=== PATIENT | male | born 1955 | race Caucasian/White ===

== ENCOUNTER → 2020-04-02 | Outpatient (CLI) | payer BC ==
--- NOTE | 2020-04-02 15:30 | RAD ---
Bilateral lower extreme ABIs and left lower extremity arterial duplex ultrasound study without comparison for nonhealing wound of the left posterior distal calf. Technique and findings: Bilateral lower extremity ABIs and left lower extremity grayscale and color and spectral Doppler evaluation is performed. The AMISH on the right is 1.02 and on the left 1.02. There is suggestion of moderate multifocal atherosclerosis throughout the superficial femoral artery, with no definite evidence of hemodynamically significant stenosis within the left common femoral, profunda femoral, superficial femoral, popliteal, posterior tibial, anterior tibial, or peroneal arterial distribution. Dorsalis pedis artery is patent as well. IMPRESSION: 1. Moderate multifocal atherosclerosis with no sonographic evidence of hemodynamically significant stenosis in the left lower extremity. Electronically signed by: Darrius Gay MD (04/02/2020 3:28 PM) [id number]
--- NOTE | 2020-04-02 15:41 | RAD ---
Left lower extremity venous duplex ultrasound study for venous insufficiency, nonhealing wound to the left posterior distal calf. TECHNIQUE AND FINDINGS: Real-time grayscale and color and spectral Doppler evaluation of the superficial veins of left lower extremity is performed. The greater saphenous and lesser saphenous veins are patent and compressible with no evidence of superficial thrombophlebitis. The greater saphenous vein and saphenofemoral junction measures 1 cm in diameter, and demonstrates insufficiency in excess of 1.3 seconds. The proximal greater saphenous vein tapers to a diameter of 7 mm and there is insufficiency of 0.7 seconds. The greater saphenous vein Then continues to taper to a diameter of 4 mm just above the knee. Below the knee this vein continues to taper to a minimal diameter of 3.4 mm at the mid calf. The mid and distal greater saphenous vein did not demonstrate insufficiency. The lesser saphenous vein also does not demonstrate insufficiency, and measures 4.3 mm proximally. No perforators are identified. No large varicosities are seen. There is extensive subcutaneous edema however. IMPRESSION: 1. Left proximal greater saphenous venous insufficiency, with no demonstrable insufficiency of the mid or distal greater saphenous vein or lesser saphenous vein, and no perforators or discrete varicosities identified. Consider left lower extremity deep venous ultrasound study with specific instructions to interrogate for deep venous reflux which can accompany the presence of May Thurner stenosis. Electronically signed by: Darrius Gay MD (04/02/2020 3:38 PM) [id number]
== END | disposition home or self-care (01) ==
LOC: US 13:06
PROVIDERS: ATTEND Preventive Medicine Undersea and Hyperbaric Medicine
DX: L97.921 Non-pressure chronic ulcer of unspecified part of left lower leg limited to breakdown of skin (principal); I87.2 Venous insufficiency (chronic) (peripheral); I70.202 Unspecified atherosclerosis of native arteries of extremities, left leg
CPT/HCPCS: 93922; 93926; 93971

== ENCOUNTER 2020-05-16 06:54 | Outpatient (CLI) | payer BC ==
[2020-05-16] VITALS (12 sets, daily range): BP systolic 163–185; BP diastolic 74–96
[~2020-05-16] VITALS: Ht 180.3 cm; Wt 158.8 kg
[2020-05-16] MEDS ORDERED: MV-M1TAB7 PO (07:36)
[2020-05-16] MEDS ORDERED: ALLO300T PO (07:36)
[2020-05-16] MEDS ORDERED: POTA-163 PO (07:36)
[2020-05-16] MEDS ORDERED: MELO15TA23 PO (07:36)
[2020-05-16] MEDS ORDERED: ASPI-630 PO (07:36)
[2020-05-16] MEDS ORDERED: AMLO5TAB10 PO (07:36)
[2020-05-16] MEDS ORDERED: MULT-245 PO (07:36)
[2020-05-16] MEDS ORDERED: VITA400C37 PO (07:36)
[2020-05-16 07:47] LABS: BASO % 1 % (0-3); EOS # 0.1 x10^3/uL (0.0-0.7); EOS % 2 % (0-3); HEMATOCRIT 44.9 % (39.0-53.0); HEMOGLOBIN 15.2 g/dL (13.0-17.5); LYMPH # 1.3 x10^3/uL (1.0-4.8); LYMPH % 29 % (24-48); MEAN CORPUSCULAR HEMOGLOBIN 29 pg (25-35); MEAN CORPUSCULAR HGB CONC 34 g/dL (31-37); MEAN CORPUSCULAR VOLUME 87 fL (79-100); MONO # 0.5 x10^3/uL (0.0-1.1); MONO % 11 % (0-9); NEUT # 2.6 x10^3/uL (1.8-7.7); NEUT % 58 % (31-73); PLATELET COUNT 196 x10^3/uL (140-400); RED BLOOD COUNT 5.18 x10^6/uL (4.30-5.70); RED CELL DISTRIBUTION WIDTH 14.8 % (11.5-14.5); WHITE BLOOD COUNT 4.6 x10^3/uL (4.0-11.0)
[2020-05-16] MEDS ORDERED: HEPARIN for ARTERIAL LINE 1,500 ML ONE (07:54)
[2020-05-16] MEDS ORDERED: IODIXANOL 320 MG/ML 100 ML VIAL. ONE (07:54)
[2020-05-16] MEDS ORDERED: LIDOCAINE WITH 8.4% SOD BICARB 3 ML DISP.SYRIN. ONE (07:55)
[2020-05-16 08:04] LABS: CALCIUM 8.9 mg/dL (8.5-10.1); CREATININE 1.1 mg/dL (0.7-1.3); POTASSIUM 3.9 mmol/L (3.5-5.1)
[2020-05-16] MEDS ORDERED: HEPARIN for IV BOLUS 10,000 UNIT/10 ML VIAL. ONE (08:06)
[2020-05-16] MEDS ORDERED: LIDOCAINE WITH 8.4% SOD BICARB 3 ML DISP.SYRIN. IJ ONE (08:15)
[2020-05-16] MEDS ORDERED: IODIXANOL 320 MG/ML 100 ML VIAL. IART ONE (08:15)
[2020-05-16] MEDS ORDERED: fentaNYL PF VIAL 250 MCG/5 ML VIAL IV ONE (08:15)
[2020-05-16] MEDS ORDERED: MIDAZOLAM HCL/PF 5 MG/5 ML VIAL. IV ONE (08:15)
[2020-05-16 08:17] LABS: PROTHROMBIN TIME PATIENT 12.7 SEC (11.7-14.0)
--- NOTE | 2020-05-16 11:25 | NUR ---
pt HOB raised to 45 degrees after completing ordered recovery time. Groin site remains dry and intact. TITI YORK
--- NOTE | 2020-05-16 12:35 | NUR ---
Discharge Note: HARRIS CEBALLOS Discharge instructions and discharge home medications reviewed with Patient and a copy given. All questions have been answered and understanding verbalized. Groin site remains dry and intact The following instructions and handouts were given: sedation, groin site care, venous stasis Discontinued lines and drains: Peripheral IV intact. Patient discharged to Home or Self Care with Spouse via Wheelchair TITI RN Addendum: 05/16/20 at 1243 by JOSE ELIAS HOWARD RN Amended: Links added.
--- NOTE | 2020-05-16 13:21 | RAD ---
05/16/2020 11:15 AM Procedure: 1. Abdominal aortogram 2. Pelvic angiogram 3. Left lower extremity angiography Clinical Indication: Poorly healing wound, left calf. Left leg pain. Discussion: The procedure was explained in its entirety to the patient or the patients designated liability claims representative by a member of the treatment team, including a discussion of the risks, benefits and commonly accepted alternatives to the procedure, as well as the expected consequences of no therapy whatsoever. Discussion of the risks included, but was not limited to, those that are most frequent and those that are rare but possibly severe or life-threatening, as well as the possibility of unforeseen complications. All elements of maximal sterile barrier technique including the use of a cap, mask, sterile gown, sterile gloves, large sterile sheet, appropriate hand hygiene, and 2% chlorhexidine for cutaneous antisepsis (or acceptable alternative antiseptic per current guidelines) were followed for this procedure. The right common femoral artery was evaluated by ultrasound found to be patent. The artery was accessed using direct ultrasound guidance and micropuncture technique. Reference ultrasound images were saved medical record. Abdominal aortogram was performed demonstrating no flow-limiting stenosis or other gross abnormal normality. Pelvic angiography demonstrates no flow limiting stenosis or other abnormality. Aortic bifurcation was crossed. The superficial femoral artery was selected. Left lower extremity angiography was performed. The SFA, popliteal artery, and all 3 runoff vessels are patent to the foot. A preemie noted in the posterior distal leg system patients with. No evidence of flow-limiting atherosclerotic vascular disease is identified. Angiography of the access site demonstrates a distal common femoral puncture amenable to closure device use. A minx device was deployed. Hemostasis was achieved. No immediate complications were identified. Total fluoroscopy time: 6.6 min Dose area product: 445 Gycm2 The procedures performed under conscious sedation including continuous cardiopulmonary monitoring via dedicated sedation nurse. [id number] sedation time: 44 minutes Impression: No hemodynamically significant aortoiliac, or left lower extremity atherosclerotic vascular disease
== END 2020-05-16 12:40 | disposition home or self-care (01) ==
LOC: INTRAD 06:54
PROVIDERS: ATTEND Preventive Medicine Undersea and Hyperbaric Medicine
DX: S81.802D Unspecified open wound, left lower leg, subsequent encounter (principal); M79.662 Pain in left lower leg; I10 Essential (primary) hypertension; E78.5 Hyperlipidemia, unspecified; X58.XXXD Exposure to other specified factors, subsequent encounter; Z79.82 Long term (current) use of aspirin; Z79.899 Other long term (current) drug therapy; Z88.8 Allergy status to other drugs, medicaments and biological substances; Z98.890 Other specified postprocedural states
CPT/HCPCS: 36247; 36415; 75625; 75710; 76937; 80048; 85025; 85610; 99152; 99153; C1713; C1760; C1769; C1892; C1894; G0269; J1644; J2250; J3010; J3490; Q9967

== ENCOUNTER → 2020-06-19 | Outpatient (CLI) | payer BC ==
[2020-05-16 12:20] VITALS: BP 181/91
[~2020-06-19] MED LIST: ALLO300T PO; AMLO-186 PO; ASPI-630 PO; MELO15TA23 PO; MULT-245 PO; MV-M1TAB7 PO; POTA-163 PO; VITA400C37 PO
--- NOTE | 2020-06-19 15:21 | RAD ---
Left lower extremity venous doppler ultrasound History: Nonhealing wound in the left lower leg Comparison: None Findings: Multiple grayscale, color, and duplex spectral analysis sonographic images were acquired of the left lower extremity veins to evaluate for the presence of DVT. Exam is limited due to patient's body habitus. There is normal phasicity. Normal compression, color-flow, and augmentation is demonstrated from the left common femoral to the popliteal veins. There is normal color flow of the proximal greater saphenous and profunda femoris veins. There is normal color flow of segments of the calf veins. There was 1 second of reflex in the left common femoral vein, no other reflex identified. Impression: 1. There is no evidence of deep venous thrombosis from the left common femoral to the popliteal veins. 2. There was 1 second of reflex in the left common femoral vein, no other reflux identified. Electronically signed by: Yosvany Cruz MD (06/19/2020 3:17 PM) [id number]
== END ==
LOC: US 13:41
PROVIDERS: ATTEND Internal Medicine Cardiovascular Disease
DX: S81.802A Unspecified open wound, left lower leg, initial encounter (principal); X58.XXXA Exposure to other specified factors, initial encounter; Y93.89 Activity, other specified; Y92.89 Other specified places as the place of occurrence of the external cause; Y99.8 Other external cause status
CPT/HCPCS: 93971

== ENCOUNTER 2021-05-02 11:01 | Inpatient (IN) | payer BC ==
[~2021-05-02] VITALS: Ht 177.8 cm; Wt 186.8 kg
[2021-05-02] MEDS ORDERED: fentaNYL PF VIAL 100 MCG/2 ML VIAL IV PRN (11:30)
[2021-05-02] MEDS ORDERED: ACETAMINOPHEN 500 MG TABLET PO ONE (11:30)
[2021-05-02] MEDS ORDERED: PIPERACILLIN/TAZOBACTAM 4.5 GM in IV NORMAL SALINE 100ML 100 ML IV ONE (11:30)
[2021-05-02] MEDS ORDERED: VANCOMYCIN PER PHARMACY MC ONE (11:30)
[2021-05-02] MEDS ORDERED: VANCOMYCIN 2 GM in IV NORMAL SALINE 500ML BAG 500 ML IV ONE (12:00)
[2021-05-02] MEDS: IV NORMAL SALINE 1000ML BAG 1,000 ML IV SCH ×3 (12:26→16:30)
[2021-05-02 12:39] LABS: BASO # 0.1 x10^3/uL (0.0-0.2); BASO % 0 % (0-3); EOS % 0 % (0-3); HEMATOCRIT 40.8 % (39.0-53.0); HEMOGLOBIN 13.7 g/dL (13.0-17.5); LYMPH % 4 % (24-48); MEAN CORPUSCULAR HEMOGLOBIN 29 pg (25-35); MEAN CORPUSCULAR HGB CONC 34 g/dL (31-37); MEAN CORPUSCULAR VOLUME 85 fL (79-100); MONO # 1.2 x10^3/uL (0.0-1.1); MONO % 5 % (0-9); NEUT # 21.9 x10^3/uL (1.8-7.7); NEUT % 91 % (31-73); PLATELET COUNT 234 x10^3/uL (140-400); RED BLOOD COUNT 4.78 x10^6/uL (4.30-5.70); RED CELL DISTRIBUTION WIDTH 15.5 % (11.5-14.5); WHITE BLOOD COUNT 24.1 x10^3/uL (4.0-11.0)
--- NOTE | 2021-05-02 13:15 | PHYS DOC ---
Past Medical History Additional Past Medical Histor: OBESITY, KIDNEY STONES, GOUT, CELLULITIS Past Surgical History: No Surgical History Smoking Status: Never Smoker Alcohol Use: None General Adult EDM: Chief Complaint: WOUND CHECK HPI: HPI: Patient is a 66 year old male with history of gout, venous insufficiency to the left lower extremity, who presents to the ED today to be evaluated after falling. Patient states his left leg gave out and he fell landing on his buttocks. Patient denies any pain. Denies hitting his head on the ground. Denies any loss of consciousness. Denies being on any anticoagulants. He states he has a chronic wound to the left lower extremity for the last 5 years. He states today he noted the wound had turned red. He states he follows up with wound clinic and they did a biopsy of the wound on Tuesday this week. Denies any fever. Nausea or vomiting. Review of Systems: Review of Systems: Constitutional: Denies fever or chills. [] Eyes: Denies change in visual acuity. [] HENT: Denies nasal congestion or sore throat. [] Respiratory: Denies cough or shortness of breath. [] Cardiovascular: Denies chest pain or edema. [] GI: Denies abdominal pain, nausea, vomiting, bloody stools or diarrhea. [] : Denies dysuria. [] Musculoskeletal: Denies back pain or joint pain. [] Integument: Reports chronic wound to the left lower extremity Neurologic: Denies headache, focal weakness or sensory changes. [] Psychiatric: Denies depression or anxiety. [] Heart Score: C/O Chest Pain: N/A Risk Factors: Risk Factors: DM, Current or recent (<one month) smoker, HTN, HLP, family history of CAD, obesity. Risk Scores: Score 0 - 3: 2.5% MACE over next 6 weeks - Discharge Home Score 4 - 6: 20.3% MACE over next 6 weeks - Admit for Clinical Observation Score 7 - 10: 72.7% MACE over next 6 weeks - Early Invasive Strategies Current Medications: Current Medications Medications (Trade) Dose Ordered Sig/Cale Start Time Stop Time Status Last Admin Dose Admin Acetaminophen (Tylenol) 1,000 mg 1X ONCE 05/02/21 11:30 05/02/21 11:31 DC Fentanyl Citrate (Fentanyl 2ml Vial) 50 mcg PRN Q15MIN PRN 05/02/21 11:30 9/5/21 11:29 Piperacillin Sod/ Tazobactam Sod 4.5 gm/Sodium Chloride 100 ml @ 200 mls/hr 1X ONCE 05/02/21 11:30 05/02/21 11:59 DC Sodium Chloride 1,000 ml @ 2,190 mls/hr Q28M 05/02/21 11:30 05/02/21 12:30 DC Vancomycin HCl (Vanco Per Pharmacy) 1 each 1X ONCE 05/02/21 11:30 05/02/21 11:31 DC Vancomycin HCl 2 gm/Sodium Chloride 500 ml @ 250 mls/hr 1X ONCE 05/02/21 12:00 05/02/21 13:59 Allergies: Allergies: Allergies Coded Allergies Type Severity Reaction Last Updated Verified morphine Allergy Intermediate unknown 05/02/21 Yes Physical Exam: PE: Constitutional: Morbidly obese patient, no acute distress, non-toxic appearance. [] HENT: Normocephalic, atraumatic, bilateral external ears normal, oropharynx moist, no oral exudates, nose normal. [] Eyes: PERRLA, EOMI, conjunctiva normal, no discharge. [] Neck: Normal range of motion, no tenderness, supple, no stridor. [] Cardiovascular:Heart rate regular rhythm, no murmur [] Lungs & Thorax: Bilateral breath sounds clear to auscultation [] Abdomen: Bowel sounds normal, soft, no tenderness, no masses, no pulsatile masses. [] Skin: Left lower extremity with multiple wounds. Left mid russ with an open wound at 4X4 cm, left lateral russ with another open wound of 9 x 10 cm, left medial russ with another wound 15 x 12 cm. There is moderate amount of cellulitis from the foot all the way to the groin with most of it around the russ. Patient had a feminine pad as dressing to the wound, the pad is soaked with the drainage. +2 left pedal pulse. Full range of motion to the left foot. Cap refill less than 2 seconds in left toes. Back: No tenderness, no CVA tenderness. [] Extremities: No tenderness, no cyanosis, no clubbing, ROM intact, no edema. [] Neurologic: Alert and oriented X 3, normal motor function, normal sensory function, no focal deficits noted. [] Psychologic: Affect normal, judgement normal, mood normal. [] Current Patient Data: Labs: Laboratory Tests Test 05/02/21 12:15 White Blood Count 24.1 x10^3/uL (4.0-11.0) H Red Blood Count 4.78 x10^6/uL (4.30-5.70) Hemoglobin 13.7 g/dL (13.0-17.5) Hematocrit 40.8 % (39.0-53.0) Mean Corpuscular Volume 85 fL (79-100) Mean Corpuscular Hemoglobin 29 pg (25-35) Mean Corpuscular Hemoglobin Concent 34 g/dL (31-37) Red Cell Distribution Width 15.5 % (11.5-14.5) H Platelet Count 234 x10^3/uL (140-400) Neutrophils (%) (Auto) 91 % (31-73) H Lymphocytes (%) (Auto) 4 % (24-48) L Monocytes (%) (Auto) 5 % (0-9) Eosinophils (%) (Auto) 0 % (0-3) Basophils (%) (Auto) 0 % (0-3) Neutrophils # (Auto) 21.9 x10^3/uL (1.8-7.7) H Lymphocytes # (Auto) 1.0 x10^3/uL (1.0-4.8) Monocytes # (Auto) 1.2 x10^3/uL (0.0-1.1) H Eosinophils # (Auto) 0.0 x10^3/uL (0.0-0.7) Basophils # (Auto) 0.1 x10^3/uL (0.0-0.2) Platelet Estimate Pending Laboratory Tests 05/02/21 12:15 Vital Signs: Vital Signs Date Time Temp Pulse Resp B/P (MAP) Pulse Ox O2 Delivery O2 Flow Rate FiO2 05/02/21 11:01 100.0 106 18 170/79 (121) 97 100.0 EKG: EKG: [] Radiology/Procedures: Radiology/Procedures: [] Course & Med Decision Making: Course & Med Decision Making Pertinent Labs and Imaging studies reviewed. (See chart for details) Is a 66-year-old male patient presented to the ED today to be evaluated after falling at home. He has a chronic wounds to the left lower extremity with significant cellulitis. Vitals on arrival to the ED temperature 100.0, heart rate 106, respiration 18 on room air, O2 sats 97%, blood pressure 170/79. CBC with a WBC of 24.1 and significant bandemia. CMP with creatinine of 1.4, BUN is normal. Lactic 2.2. Procalcitonin 3.90. CRP 276.4. Patient was started on sepsis protocol including IV fluids and antibiotics. Spoke with Dr. Bearden who accepted patient for admission Venous Doppler and arterial Dopplers of the left lower extremity pending Dragon Disclaimer: Dragon Disclaimer: This electronic medical record was generated, in whole or in part, using a voice recognition dictation system. Date and Time of Reassessment Date: May 02, 2021 Time: 11:50 Fluid Challenge Is the fluid challenge complet: Yes IBW Target Volume Used: Yes BMI > 30: Yes Vital Signs Vital Signs: Vital Signs Date Time Temp Pulse Resp B/P (MAP) Pulse Ox O2 Delivery O2 Flow Rate FiO2 05/02/21 11:01 100.0 106 18 170/79 (121) 97 100.0 Temperature Source: Oral Respirations Respiratory Effort: Normal Respiratory Pattern: Normal Cardiovascular Pulse Rhythm: Regular Heart: Nml rate, reg. rhythm Lung Sounds Breath Sounds: Clear Capillary Refil Capillary Refill: Rt Hand > 3 seconds Peripheral Pulse Pulse Location: Monitor Pulse Strength: Normal (2+) Pulse Assessment Method: Monitor Integumentary Skin: Warm Skin Moisture: Dry Skin Turgor: Normal Skin Color: warm Fingernail Color: WNL Departure Departure Impression: Primary Impression: Fall from standing Qualified Codes: W19.XXXA - Unspecified fall, initial encounter Additional Impressions: Left leg cellulitis Leg wound, left Qualified Codes: S81.802A - Unspecified open wound, left lower leg, initial encounter Sepsis Qualified Codes: A41.9 - Sepsis, unspecified organism Fever Qualified Codes: R50.9 - Fever, unspecified Disposition: 09 ADMITTED INPATIENT Condition: STABLE Referrals: FLO WARREN DO (PCP) STEPHANIE STONE APRN May 02, 2021 13:15
[2021-05-02 13:24] LABS: CALCIUM 9.3 mg/dL (8.5-10.1); CREATININE 1.4 mg/dL (0.7-1.3); GFR 50.5; POTASSIUM 3.9 mmol/L (3.5-5.1)
[2021-05-02 13:28] LABS: ALBUMIN 2.8 g/dL (3.4-5.0); ALBUMIN/GLOBULIN RATIO 0.6 (1.0-1.7); TOTAL BILIRUBIN 0.6 mg/dL (0.2-1.0); TOTAL PROTEIN 7.8 g/dL (6.4-8.2)
[2021-05-02 13:46] LABS: C-REACTIVE PROTEIN 276.4 mg/L (0-3.3)
[2021-05-02 14:33] LABS: % BANDS 21 % (0-9); % MONOS 6 % (0-10)
[2021-05-02 14:35] LABS: % LYMPHS 1 % (24-48); % SEGS 72 % (35-66); PLT ESTIMATE ADEQUATE (ADEQUATE)
--- NOTE | 2021-05-02 14:57 | RAD ---
Exam Date: 05/02/2021 12:27 PM US LEFT LOWER EXTREMITY ARTERIAL DUPLEX EVAL Indication: Reason: LLE wounds/SONO TECH NOTIFIED / Spl. Instructions: / History: . LEFT EXTREMITY ARTERIAL COLOR DOPPLER ULTRASOUND HISTORY: Peripheral vascular disease TECHNIQUE: Grayscale, color Doppler, and spectral Doppler imaging of the lower extremity arterial sy stem was performed. FINDINGS: LEFT: The common femoral artery showed a monophasic arterial waveform and peak systolic velocity of 167 cm/ sec. The superficial femoral artery showed a monophasic arterial waveform and peak systolic velocity of 22 2 cm/sec. The popliteal artery showed a monophasic arterial waveform and peak systolic velocity of 103 cm/sec. The posterior tibial artery showed a monophasic arterial waveform and peak systolic velocity of 167 c m/sec. The peroneal artery showed a monophasic arterial waveform and peak systolic velocity of 57 cm/sec. The dorsalis pedis artery showed a biphasic arterial waveform and peak systolic velocity of 18 cm/sec . No focal area of accelerated flow is identified to suggest any hemodynamically significant stenosis. IMPRESSION: Monophasic waveforms throughout the left lower extremity arterial structures is consistent with chron ic atherosclerotic disease and small vessel disease. No focal areas of hemodynamically significant stenosis identified. Electronically signed by: Von Flowers MD (05/02/2021 2:54 PM) [facility]
[2021-05-02 17:40] VITALS: BP 160/80
[2021-05-02] MEDS ORDERED: AMLO1CAP5 PO (19:13)
[2021-05-02] MEDS ORDERED: POTA-121 PO (19:13)
[2021-05-02 19:33] VITALS: BP 119/49
[2021-05-02] MEDS: fentaNYL PF VIAL 100 MCG/2 ML VIAL IVP PRN (19:35)
[2021-05-02] MEDS ORDERED: PIP/TAZO PER PHARMACY MC PRN (20:00)
[2021-05-02] MEDS: PIPERACILLIN/TAZOBACTAM 4.5 GM in IV NORMAL SALINE 100ML 100 ML IV SCH (20:00)
--- NOTE | 2021-05-02 20:11 | PDOC1 ---
History and Physical Date of Admission Date of Admission DATE: 05/02/21 TIME: 20:05 Identification/Chief Complaint Chief Complaint leg wound and redness Source Source: Chart review, Patient History of Present Illness History of Present Illness Mr. Ba, is a 66 year old male admit with worsening of chronic left lower leg wound with now redness and drainage and cellulitis. He has a history of gout, venous insufficiency (never operated on) and has fallen today. Left leg was weak and he fell, and leg is more red and painful than normal. . Patient denies any pain. Denies hitting his head on the ground. Denies any loss of consciousness. He states he has a chronic wound to the left lower extremity for the last 5 years. He states he follows up with wound clinic and they did a biopsy of the wound last week Social History Smoke: No ALCOHOL: none Drugs: None Current Problem List Problem List Problems Medical Problems: (1) Fall from standing Status: Acute (2) Fever Status: Acute (3) Left leg cellulitis Status: Acute (4) Leg wound, left Status: Acute (5) Sepsis Status: Acute Current Medications Current Medications Current Medications Sodium Chloride 1,000 ml @ 2,190 mls/hr Q28M IV Last administered on 05/02/21at 16:30; Start 05/02/21 at 11:30; Stop 05/02/21 at 12:30; Status DC Piperacillin Sod/ Tazobactam Sod 4.5 gm/Sodium Chloride 100 ml @ 200 mls/hr 1X ONCE IV Last administered on 05/02/21at 13:26; Start 05/02/21 at 11:30; Stop 05/02/21 at 11:59; Status DC Vancomycin HCl (Vanco Per Pharmacy) 1 each 1X ONCE MC ; Start 05/02/21 at 11:30; Stop 05/02/21 at 11:31; Status DC Fentanyl Citrate (Fentanyl 2ml Vial) 50 mcg PRN Q15MIN PRN IV PAIN GREATER THAN 3/10; Start 05/02/21 at 11:30; Stop 05/02/21 at 19:01; Status DC Acetaminophen (Tylenol) 1,000 mg 1X ONCE PO Last administered on 05/02/21at 13:28; Start 05/02/21 at 11:30; Stop 05/02/21 at 11:31; Status DC Vancomycin HCl 2 gm/Sodium Chloride 500 ml @ 250 mls/hr 1X ONCE IV Last administered on 05/02/21at 14:05; Start 05/02/21 at 12:00; Stop 05/02/21 at 13:59; Status DC Fentanyl Citrate (Fentanyl 2ml Vial) 50 mcg PRN Q2HR PRN IVP PAIN Last a dministered on 05/02/21at 19:35; Start 05/02/21 at 19:00 Vancomycin HCl (Vanco Per Pharmacy) 1 each PRN DAILY PRN MC SEE COMMENTS; Start 05/02/21 at 20:00 Piperacillin Sod/ Tazobactam Sod (Zosyn Per Pharmacy) 1 each PRN DAILY PRN MC SEE COMMENTS; Start 05/02/21 at 20:00 Piperacillin Sod/ Tazobactam Sod 4.5 gm/Sodium Chloride 100 ml @ 200 mls/hr Q6HRS IV ; Start 05/02/21 at 20:00 Vancomycin HCl 1.5 gm/Sodium Chloride 500 ml @ 250 mls/hr Q12H IV ; Start 05/03/21 at 02:00 Active Scripts Active Reported Multi Vitamin Daily (Multivitamin) 1 Each Tablet 1 Each PO DAILY Aspirin 81 Mg Tab.chew 1 Tab PO DAILY Meloxicam 15 Mg Tablet 15 Mg PO DAILY Amlodipine Besylate 5 Mg Tablet 5 Mg PO DAILY Allopurinol 300 Mg Tablet 300 Mg PO DAILY Allergies Allergies: Coded Allergies: morphine (Verified Allergy, Intermediate, unknown, 05/02/21) ROS General: YES: Fatigue; No: Chills, Night Sweats, Malaise, Appetite, Other PSYCHOLOGICAL ROS: No: Anxiety, Behavioral Disorder, Concentration difficultie, Decreased libido, Depression, Disorientation, Hallucinations, Hostility, Irritablity, Memory difficulties, Mood Swings, Obsessive thoughts, Physical abuse, Sexual abuse, Sleep disturbances, Suicidal ideation, Other Eyes: No Blurry vision, No Decreased vision, No Double vision, No Dry eyes, No Excessive tearing, No Eye Pain, No Itchy Eyes, No Loss of vision, No Photophob ia, No Scotomata, No Uses contacts, No Uses glasses, No Other HEENT: No: Heacaches, Visual Changes, Hearing change, Nasal congestion, Nasal discharge, Oral lesions, Sinus pain, Sore Throat, Epistaxis, Sneezing, Snoring, Tinnitus, Vertigo, Vocal changes, Other Respiratory: No: Cough, Hemoptysis, Orthopnea, Pleuritic Pain, Shortness of breath, SOB with excertion, Sputum Changes, Stridor, Tachypnea, Wheezing, Other Cardiovascular: No Chest Pain, No Palpitations, No Orthopnea, No Paroxysmal Noc. Dyspnea, No Edema, No Lt Headedness, No Other Genitourinary: No Dysuria, No Frequency, No Incontinence, No Hematuria, No Retention, No Discharge, No Urgency, No Pain, No Flank Pain, No Other, No , No , No , No , No , No , No Musculoskeletal: No Gait Disturbance, No Joint Pain, No Joint Stiffness, No Joint Swelling, No Muscle Pain, No Muscular Weakness, No Pain In:, No Swelling In:, No Other Neurological: No Behavorial Changes, No Bowel/Bladder ControlChng, No Confusion, No Dizziness, No Gait Disturbance, No Headaches, No Impaired Coord/balance, No Memory Loss, No Numbness/Tingling, No Seizures, No Speech Problems, No Tremors, No Visual Changes, No Weakness, No Other Skin: Yes Rash, Yes Skin Lesion Changes Physical Exam General: Alert, Oriented X3, Cooperative, No acute distress HEENT: Atraumatic, PERRLA, EOMI Lungs: Clear to auscultation, Normal air movement Heart: S1S2, no gallops Abdomen: Soft (very obese, ) Rectal Exam: not examined Extremities: No cyanosis, Other (1+ LE edema, some lymphedema from size) Skin: Other (redness, and rash and breakdown, large medial lower leg with full thickness skin peeled off over about 12 cm, with drainage, ) Neuro: Normal speech, Normal tone, Sensation intact Psych/Mental Status: Mental status NL, Mood NL Vitals Vitals Vital Signs Date Time Temp Pulse Resp B/P (MAP) Pulse Ox O2 Delivery O2 Flow Rate FiO2 05/02/21 19:35 18 95 Room Air 05/02/21 19:33 98.0 101 119/49 (72) 98.0 Labs Labs Laboratory Tests Test 05/02/21 12:15 05/02/21 12:45 05/02/21 16:15 White Blood Count 24.1 x10^3/uL (4.0-11.0) Red Blood Count 4.78 x10^6/uL (4.30-5.70) Hemoglobin 13.7 g/dL (13.0-17.5) Hematocrit 40.8 % (39.0-53.0) Mean Corpuscular Volume 85 fL (79-100) Mean Corpuscular Hemoglobin 29 pg (25-35) Mean Corpuscular Hemoglobin Concent 34 g/dL (31-37) Red Cell Distribution Width 15.5 % (11.5-14.5) Platelet Count 234 x10^3/uL (140-400) Neutrophils (%) (Auto) 91 % (31-73) Lymphocytes (%) (Auto) 4 % (24-48) Monocytes (%) (Auto) 5 % (0-9) Eosinophils (%) (Auto) 0 % (0-3) Basophils (%) (Auto) 0 % (0-3) Neutrophils # (Auto) 21.9 x10^3/uL (1.8-7.7) Lymphocytes # (Auto) 1.0 x10^3/uL (1.0-4.8) Monocytes # (Auto) 1.2 x10^3/uL (0.0-1.1) Eosinophils # (Auto) 0.0 x10^3/uL (0.0-0.7) Basophils # (Auto) 0.1 x10^3/uL (0.0-0.2) Segmented Neutrophils % 72 % (35-66) Band Neutrophils % 21 % (0-9) Lymphocytes % 1 % (24-48) Monocytes % 6 % (0-10) Platelet Estimate Adequate (ADEQUATE) Erythrocyte Sedimentation Rate 48 (0-15) Lactic Acid Level 2.2 mmol/L (0.4-2.0) 1.2 mmol/L (0.4-2.0) Sodium Level 136 mmol/L (136-145) Potassium Level 3.9 mmol/L (3.5-5.1) Chloride Level 102 mmol/L (98-107) Carbon Dioxide Level 23 mmol/L (21-32) Anion Gap 11 (6-14) Blood Urea Nitrogen 20 mg/dL (8-26) Creatinine 1.4 mg/dL (0.7-1.3) Estimated GFR (Cockcroft-Gault) 50.5 BUN/Creatinine Ratio 14 (6-20) Glucose Level 107 mg/dL (70-99) Calcium Level 9.3 mg/dL (8.5-10.1) Total Bilirubin 0.6 mg/dL (0.2-1.0) Aspartate Amino Transf (AST/SGOT) 101 U/L (15-37) Alanine Aminotransferase (ALT/SGPT) 32 U/L (16-63) Alkaline Phosphatase 57 U/L (46-116) C-Reactive Protein, Quantitative 276.4 mg/L (0-3.3) Total Protein 7.8 g/dL (6.4-8.2) Albumin 2.8 g/dL (3.4-5.0) Albumin/Globulin Ratio 0.6 (1.0-1.7) Procalcitonin 3.90 ng/mL (0.00-0.10) Laboratory Tests Test 05/02/21 12:15 05/02/21 12:45 05/02/21 16:15 White Blood Count 24.1 x10^3/uL (4.0-11.0) Red Blood Count 4.78 x10^6/uL (4.30-5.70) Hemoglobin 13.7 g/dL (13.0-17.5) Hematocrit 40.8 % (39.0-53.0) Mean Corpuscular Volume 85 fL (79-100) Mean Corpuscular Hemoglobin 29 pg (25-35) Mean Corpuscular Hemoglobin Concent 34 g/dL (31-37) Red Cell Distribution Width 15.5 % (11.5-14.5) Platelet Count 234 x10^3/uL (140-400) Neutrophils (%) (Auto) 91 % (31-73) Lymphocytes (%) (Auto) 4 % (24-48) Monocytes (%) (Auto) 5 % (0-9) Eosinophils (%) (Auto) 0 % (0-3) Basophils (%) (Auto) 0 % (0-3) Neutrophils # (Auto) 21.9 x10^3/uL (1.8-7.7) Lymphocytes # (Auto) 1.0 x10^3/uL (1.0-4.8) Monocytes # (Auto) 1.2 x10^3/uL (0.0-1.1) Eosinophils # (Auto) 0.0 x10^3/uL (0.0-0.7) Basophils # (Auto) 0.1 x10^3/uL (0.0-0.2) Segmented Neutrophils % 72 % (35-66) Band Neutrophils % 21 % (0-9) Lymphocytes % 1 % (24-48) Monocytes % 6 % (0-10) Platelet Estimate Adequate (ADEQUATE) Erythrocyte Sedimentation Rate 48 (0-15) Lactic Acid Level 2.2 mmol/L (0.4-2.0) 1.2 mmol/L (0.4-2.0) Sodium Level 136 mmol/L (136-145) Potassium Level 3.9 mmol/L (3.5-5.1) Chloride Level 102 mmol/L (98-107) Carbon Dioxide Level 23 mmol/L (21-32) Anion Gap 11 (6-14) Blood Urea Nitrogen 20 mg/dL (8-26) Creatinine 1.4 mg/dL (0.7-1.3) Estimated GFR (Cockcroft-Gault) 50.5 BUN/Creatinine Ratio 14 (6-20) Glucose Level 107 mg/dL (70-99) Calcium Level 9.3 mg/dL (8.5-10.1) Total Bilirubin 0.6 mg/dL (0.2-1.0) Aspartate Amino Transf (AST/SGOT) 101 U/L (15-37) Alanine Aminotransferase (ALT/SGPT) 32 U/L (16-63) Alkaline Phosphatase 57 U/L (46-116) C-Reactive Protein, Quantitative 276.4 mg/L (0-3.3) Total Protein 7.8 g/dL (6.4-8.2) Albumin 2.8 g/dL (3.4-5.0) Albumin/Globulin Ratio 0.6 (1.0-1.7) Procalcitonin 3.90 ng/mL (0.00-0.10) VTE Prophylaxis Ordered VTE Prophylaxis Devices: No VTE Pharmacological Prophylaxi: Yes Assessment/Plan Assessment/Plan left leg wound, acute on chronic, long standing wound to leg, and nwo with worsening cellulitis and redness and drainage, recent abx I month ago, and now worse will consult wound care and ID, he has seen wound care at for about 5 years, morbid obese, BMI 56 Justifications for Admission Other Justification NOBLE WILDER MD May 02, 2021 20:11
[2021-05-02] MEDS: VANCOMYCIN PER PHARMACY MC PRN (21:05)
--- NOTE | 2021-05-02 21:07 | NUR ---
Pharmacy Vancomycin Dosing Note S: Consulted to monitor and dose vancomycin started 05/02/21. O: HARRIS CEBALLOS is a 66 year old M with Cellulitis,Sepsis Other Antibiotics: ZOSYN LABS: Last BUN: 20 Last Creatinine: 1.4 Creatinine Clearance: 82 mL/min Last WBC: 24.1 Last Procalcitonin: 3.9 Tmax (past 24 hours): AFEBRILE Target Trough: 10-20 A: Based on: VANCO dosing guidelines P: 1. Begin Vancomycin 2000mg LOAD dose, then 1500 mg IV q12h 2. Follow up Trough level on 05/04/21 at 1330 3. Pharmacy will continue to monitor, follow and adjust therapy as needed. RADHA KRISHNAMURTHY, [facility], 05/02/21 [id number]
[2021-05-02 22:44] VITALS: BP 167/72
[2021-05-02] MEDS ORDERED: hydrALAZINE 20 MG/ML VIAL. IVP PRN (22:45)
[2021-05-03] MEDS: PIPERACILLIN/TAZOBACTAM 4.5 GM in IV NORMAL SALINE 100ML 100 ML IV SCH ×4 (00:24→17:36)
[2021-05-03] MEDS: VANCOMYCIN 1.5 GM in IV NORMAL SALINE 500ML BAG 500 ML IV SCH ×2 (01:54→14:24)
[2021-05-03 04:00] VITALS: BP 163/74
[2021-05-03] MEDS: fentaNYL PF VIAL 100 MCG/2 ML VIAL IVP PRN (06:30)
[2021-05-03 07:00] VITALS: BP 119/66
[2021-05-03] MEDS: VANCOMYCIN PER PHARMACY MC PRN (08:57)
[2021-05-03] MEDS: ASPIRIN CHEWABLE 81 MG TABLET. PO SCH (09:23)
[2021-05-03] MEDS: ALLOPURINOL 300 MG TABLET. PO SCH (09:24)
[2021-05-03 11:00] VITALS: BP 138/108
[2021-05-03] MEDS ORDERED: traMADol 50 MG TABLET PO PRN (12:15)
[2021-05-03] MEDS ORDERED: ACETAMINOPHEN 325 MG TABLET. PO PRN (12:15)
[2021-05-03] MEDS ORDERED: ONDANSETRON PF 4 MG/2 ML VIAL. IVP PRN (12:15)
--- NOTE | 2021-05-03 12:19 | PDOC ---
[employer] PROGRESS NOTE Date of Service DOS: DATE: 05/03/21 TIME: 12:15 Chief Complaint Chief Complaint A/P: Left leg wound - acute on chronic, long standing wound to leg, and now with worsening cellulitis and redness and drainage, recent abx I month ago - failed outpatient therapy. will consult wound care and ID, he has seen wound care at for about 5 years, Sepsis - due to progressive cellulitis with open wound of left leg. Empiric fluids and antibiotics. ID consulted Back pain - after fall, will obtain lumbar x-ray given severity of pain and foc al spinal tenderness Morbid obese, BMI 56 - counseled on lifestyle modification SHILOH - no known renal disease in history, likely vasomotor nephropathy from sepsis Lactic acidosis - improved FEN - Regular diet PPX - heparin FULL CODE Dispo - inpatient History of Present Illness History of Present Illness Mr. Ba, is a 66 year old male w/ PMHx morbid obesity, kidney stones, gout, and chronic LLE wound presented to ED c/o a fall and worsening of chronic left lower leg wound with now redness and drainage and cellulitis. Left leg was weak and he fell, and leg is more red and painful than normal. He notes he had a biopsy on 04/30/2021 and was instructed he may need steroids based on the results, follows up with wound clinic. Patient denies any pain. Denies hitting his head on the ground. Denies any loss of consciousness. He states he has a chronic wound to the left lower extremity for the last 5 years. Noted in ED temp 100 F, heart rate 106 blood pressure 170/79, and labs WBC 24.1, CR 1.4, lactic acid 2.2, procalcitonin 3.9, CRP 276.4. Initiated on Zosyn. Vancomycin with arterial Doppler of lower left extremity Monophasic waveforms throughout the left lower extremity arterial structures is consistent with chronic atherosclerotic disease and small vessel disease and no discrete occlusions. Pain worsening in lumbar spine. Notes his redness swelling and pain has progressed into his posterior left thigh. 8/10 focal spinal pain L5-S1 on palpation. Vitals/I&O Vitals/I&O: Vital Signs Date Time Temp Pulse Resp B/P (MAP) Pulse Ox O2 Delivery O2 Flow Rate FiO2 05/03/21 09:24 89 119/66 9/5/21 08:19 Room Air 05/03/21 07:00 98.3 16 93 98.3 I & O 05/02/21 05/02/21 05/03/21 15:00 23:00 07:00 Intake Total 240 ml Output Total 300 ml 0 ml 400 ml Balance -300 ml 0 ml -160 ml Physical Exam General: Alert, Oriented X3, Cooperative, No acute distress Abdomen: Soft (very obese, ) Extremities: No cyanosis, Other (1+ LE edema, some lymphedema from size) Skin: Other (redness, and rash and breakdown, large medial lower leg with full thickness skin peeled off over about 12 cm, with drainage, ) Labs Labs: Laboratory Tests Test 05/02/21 12:45 05/02/21 16:15 Sodium Level 136 mmol/L (136-145) Potassium Level 3.9 mmol/L (3.5-5.1) Chloride Level 102 mmol/L (98-107) Carbon Dioxide Level 23 mmol/L (21-32) Anion Gap 11 (6-14) Blood Urea Nitrogen 20 mg/dL (8-26) Creatinine 1.4 mg/dL (0.7-1.3) Estimated GFR (Cockcroft-Gault) 50.5 BUN/Creatinine Ratio 14 (6-20) Glucose Level 107 mg/dL (70-99) Calcium Level 9.3 mg/dL (8.5-10.1) Total Bilirubin 0.6 mg/dL (0.2-1.0) Aspartate Amino Transf (AST/SGOT) 101 U/L (15-37) Alanine Aminotransferase (ALT/SGPT) 32 U/L (16-63) Alkaline Phosphatase 57 U/L (46-116) C-Reactive Protein, Quantitative 276.4 mg/L (0-3.3) Total Protein 7.8 g/dL (6.4-8.2) Albumin 2.8 g/dL (3.4-5.0) Albumin/Globulin Ratio 0.6 (1.0-1.7) Procalcitonin 3.90 ng/mL (0.00-0.10) Lactic Acid Level 1.2 mmol/L (0.4-2.0) Assessment and Plan Assessmemt and Plan Problems Medical Problems: (1) Fall from standing Status: Acute (2) Fever Status: Acute (3) Left leg cellulitis Status: Acute (4) Leg wound, left Status: Acute (5) Sepsis Status: Acute Comment Review of Relevant I have reviewed the following items aniket (where applicable) has been applied. Medications: Current Medications Medications (Trade) Dose Ordered Sig/Cale Route PRN Reason Start Time Stop Time Status Last Admin Dose Admin Fentanyl Citrate (Fentanyl 2ml Vial) 50 mcg PRN Q2HR PRN IVP PAIN 05/02/21 19:00 05/03/21 06:30 Vancomycin HCl (Vanco Per Pharmacy) 1 each PRN DAILY PRN MC SEE COMMENTS 05/02/21 20:00 05/03/21 08:57 Piperacillin Sod/ Tazobactam Sod 4.5 gm/Sodium Chloride 100 ml @ 200 mls/hr Q6HRS IV 05/02/21 20:00 05/03/21 06:29 Vancomycin HCl 1.5 gm/Sodium Chloride 500 ml @ 250 mls/hr Q12H IV 05/03/21 02:00 05/03/21 01:54 Allopurinol (Zyloprim) 300 mg DAILY PO 05/03/21 09:00 05/03/21 09:24 Amlodipine Besylate (Norvasc) 5 mg DAILY PO 05/03/21 09:00 05/03/21 09:24 Aspirin (Aspirin Chewable) 81 mg DAILY PO 05/03/21 09:00 05/03/21 09:23 Justifications for Admission Other Justification KARIN DRAPER MD May 03, 2021 12:19
[2021-05-03 15:00] VITALS: BP 146/68
[2021-05-03 19:45] VITALS: BP 142/64
--- NOTE | 2021-05-03 20:23 | CONS ---
DATE OF CONSULTATION: 05/03/2021 REFERRING PHYSICIAN: Dr. Bearden. REASON FOR CONSULTATION: Left leg cellulitis. HISTORY OF PRESENT ILLNESS: This is a 66-year-old gentleman with a history of obesity, chronic venous insufficiency ulcer, who comes in after having a fall at home. The patient actually last , had a biopsy done at from that ulcer and he came after the fall that he could not get up. The patient is found to have extensive cellulitis of the left lower extremity on the upper part of the leg, fever up to 100.6, white count up to 24,000 and he is started on vancomycin and Zosyn. The patient denies any nausea, vomiting, diarrhea. Denies any chest pain, shortness of breath, abdominal pain, urinary symptoms or bowel symptoms. PAST MEDICAL HISTORY: Positive for morbid obesity, venous insufficiency with ulceration, history of kidney stones, obstructive sleep apnea, hypertension. SOCIAL HISTORY: Negative for smoking, alcohol, illicit drug use. ALLERGIES: No known drug allergies. CURRENT MEDICATIONS: Reviewed. The patient is on vancomycin and Zosyn. REVIEW OF SYSTEMS: As per HPI. All other systems reviewed are negative. PHYSICAL EXAMINATION: GENERAL: Alert gentleman, not in distress. VITAL SIGNS: Temperature 98.3 with T-max 100.6. Rest of the vital signs are stable. HEENT: NAD. NECK: Supple, no JVP, no lymphadenopathy. LUNGS: Clear. HEART: S1, S2 regular. ABDOMEN: Benign. EXTREMITIES: Left lower extremity has chronic venous insufficiency ulcer on the lower part of the leg, it is very large. The patient has now extensive erythema of the leg and going into the medial thigh. Rest of the skin is unremarkable. NEUROLOGIC: The patient is alert, awake, and appropriate. No focal neurologic deficit. LABORATORY DATA: White count is 24,000. BUN and creatinine is 20 and 1.4. Blood cultures are negative. Ultrasound of the lower extremities unremarkable. He does have arterial disease also. IMPRESSION: 1. Left lower extremity cellulitis, likely introduction of bacteria post-biopsy. 2. Venous insufficiency, chronic ulcer. 3. Peripheral arterial disease. 4. Fever. 5. Leukocytosis. 6. Obesity. RECOMMENDATIONS: Agree with vancomycin and Zosyn. Supportive care and will continue to follow. Thank you very much, Dr. Bearden for giving me opportunity to participate in this patient's care. HOMERO/LUCIANO/VICTORINO DR: HOMERO/tiara TID: [id number]
[2021-05-03] MEDS: LACTOBACILLUS RHAMNOSUS GG 1 CAPSULE. PO SCH (20:24)
[2021-05-03 22:50] VITALS: BP 128/67
[2021-05-04] MEDS: PIPERACILLIN/TAZOBACTAM 4.5 GM in IV NORMAL SALINE 100ML 100 ML IV SCH ×5 (00:15→23:42)
[2021-05-04] MEDS: VANCOMYCIN 1.5 GM in IV NORMAL SALINE 500ML BAG 500 ML IV SCH (02:34)
[2021-05-04 03:20] VITALS: BP 133/68
[2021-05-04 05:01] LABS: BASO % 0 % (0-3); EOS # 0.1 x10^3/uL (0.0-0.7); EOS % 0 % (0-3); HEMATOCRIT 35.7 % (39.0-53.0); HEMOGLOBIN 11.8 g/dL (13.0-17.5); LYMPH # 1.2 x10^3/uL (1.0-4.8); LYMPH % 9 % (24-48); MEAN CORPUSCULAR HEMOGLOBIN 29 pg (25-35); MEAN CORPUSCULAR HGB CONC 33 g/dL (31-37); MEAN CORPUSCULAR VOLUME 86 fL (79-100); MONO # 1.4 x10^3/uL (0.0-1.1); MONO % 10 % (0-9); NEUT # 11.6 x10^3/uL (1.8-7.7); NEUT % 81 % (31-73); PLATELET COUNT 200 x10^3/uL (140-400); RED BLOOD COUNT 4.14 x10^6/uL (4.30-5.70); RED CELL DISTRIBUTION WIDTH 15.4 % (11.5-14.5); WHITE BLOOD COUNT 14.3 x10^3/uL (4.0-11.0)
[2021-05-04 06:30] LABS: ALBUMIN/GLOBULIN RATIO 0.5 (1.0-1.7); CALCIUM 8.4 mg/dL (8.5-10.1); CREATININE 1.5 mg/dL (0.7-1.3); GFR 46.7; POTASSIUM 3.6 mmol/L (3.5-5.1); TOTAL BILIRUBIN 0.4 mg/dL (0.2-1.0); TOTAL PROTEIN 6.4 g/dL (6.4-8.2)
[2021-05-04 07:30] VITALS: BP 128/87
[2021-05-04] MEDS: ASPIRIN CHEWABLE 81 MG TABLET. PO SCH (08:11)
[2021-05-04] MEDS: ALLOPURINOL 300 MG TABLET. PO SCH (08:11)
[2021-05-04] MEDS: LACTOBACILLUS RHAMNOSUS GG 1 CAPSULE. PO SCH ×2 (08:11→20:47)
[2021-05-04] MEDS: HYDROcodone/APAP 5/325MG 1 TAB TABLET PO PRN ×2 (08:12→18:00)
--- NOTE | 2021-05-04 08:22 | PDOC ---
Infectious Disease Note Subjective Subjective Patient is feeling better though continues to have significant thigh pain and redness ROS ROS No nausea vomiting diarrhea chest pain shortness of breath abdominal pain Vital Sign Vital Signs Vital Signs Date Time Temp Pulse Resp B/P (MAP) Pulse Ox O2 Delivery O2 Flow Rate FiO2 05/04/21 08:12 Room Air 05/04/21 08:12 90 128/87 05/04/21 07:30 100.1 20 95 2.0 100.1 Physical Exam PHYSICAL EXAM GENERAL: Alert gentleman, not in distress. VITAL SIGNS: stable. HEENT: NAD. NECK: Supple, no JVP, no lymphadenopathy. LUNGS: Clear. HEART: S1, S2 regular. ABDOMEN: Benign. EXTREMITIES: Left lower extremity has chronic venous insufficiency ulcer on the lower part of the leg, it is very large. The patient has now extensive erythema of the leg and going into the medial thigh. Rest of the skin is unremarkable. NEUROLOGIC: The patient is alert, awake, and appropriate. No focal neurologic deficit. Labs Lab Laboratory Tests Test 05/04/21 04:10 White Blood Count 14.3 x10^3/uL (4.0-11.0) Red Blood Count 4.14 x10^6/uL (4.30-5.70) Hemoglobin 11.8 g/dL (13.0-17.5) Hematocrit 35.7 % (39.0-53.0) Mean Corpuscular Volume 86 fL (79-100) Mean Corpuscular Hemoglobin 29 pg (25-35) Mean Corpuscular Hemoglobin Concent 33 g/dL (31-37) Red Cell Distribution Width 15.4 % (11.5-14.5) Platelet Count 200 x10^3/uL (140-400) Neutrophils (%) (Auto) 81 % (31-73) Lymphocytes (%) (Auto) 9 % (24-48) Monocytes (%) (Auto) 10 % (0-9) Eosinophils (%) (Auto) 0 % (0-3) Basophils (%) (Auto) 0 % (0-3) Neutrophils # (Auto) 11.6 x10^3/uL (1.8-7.7) Lymphocytes # (Auto) 1.2 x10^3/uL (1.0-4.8) Monocytes # (Auto) 1.4 x10^3/uL (0.0-1.1) Eosinophils # (Auto) 0.1 x10^3/uL (0.0-0.7) Basophils # (Auto) 0.0 x10^3/uL (0.0-0.2) Sodium Level 144 mmol/L (136-145) Potassium Level 3.6 mmol/L (3.5-5.1) Chloride Level 109 mmol/L (98-107) Carbon Dioxide Level 22 mmol/L (21-32) Anion Gap 13 (6-14) Blood Urea Nitrogen 18 mg/dL (8-26) Creatinine 1.5 mg/dL (0.7-1.3) Estimated GFR (Cockcroft-Gault) 46.7 BUN/Creatinine Ratio 12 (6-20) Glucose Level 96 mg/dL (70-99) Calcium Level 8.4 mg/dL (8.5-10.1) Total Bilirubin 0.4 mg/dL (0.2-1.0) Aspartate Amino Transf (AST/SGOT) 65 U/L (15-37) Alanine Aminotransferase (ALT/SGPT) 43 U/L (16-63) Alkaline Phosphatase 58 U/L (46-116) Total Protein 6.4 g/dL (6.4-8.2) Albumin 2.0 g/dL (3.4-5.0) Albumin/Globulin Ratio 0.5 (1.0-1.7) Micro Microbiology 05/02/21 Blood Culture - Preliminary, Resulted NO GROWTH AFTER 1 DAY Objective Assessment IMPRESSION: 1. Left lower extremity cellulitis, likely introduction of bacteria post-biopsy. 2. Venous insufficiency, chronic ulcer. 3. Peripheral arterial disease. 4. Fever. 5. Leukocytosis. 6. Obesity. Plan Plan of Care Discontinue vancomycin changed to Zyvox. Continue Zosyn. PT OT MIKE NUNN MD May 04, 2021 08:22
[2021-05-04] MEDS: LINEZOLID 600 MG TABLET PO SCH ×2 (10:54→20:47)
[2021-05-04 11:12] VITALS: BP 137/71
--- NOTE | 2021-05-04 13:54 | PDOC ---
[facility] [facility] PROGRESS NOTE Date of Service DOS: DATE: 05/04/21 TIME: 13:39 Chief Complaint Chief Complaint Left leg wound - acute on chronic Left lower extremity severe cellulitis Sepsis Back pain Morbid obese SHILOH Venous insufficiency Peripheral artery disease History of Present Illness History of Present Illness Mr. Ba, is a 66 year old male w/ PMHx morbid obesity, kidney stones, gout, and chronic LLE wound presented to ED c/o a fall and worsening of chronic left lower leg wound with now redness and drainage and cellulitis. Left leg was weak and he fell, and leg is more red and painful than normal. He notes he had a biopsy on 04/30/2021 and was instructed he may need steroids based on the results, follows up with [facility]. Patient denies any pain. Denies hitting his head on the ground. Denies any loss of consciousness. He states he has a chronic wound to the left lower extremity for the last 5 years. Noted in ED temp 100 F, heart rate 106 blood pressure 170/79, and labs WBC 24.1, CR 1.4, lactic acid 2.2, procalcitonin 3.9, CRP 276.4. Initiated on Zosyn. Vancomycin with arterial Doppler of lower left extremity Monophasic waveforms throughout the left lower extremity arterial structures is consistent with chronic atherosclerotic disease and small vessel disease and no discrete occlusions. 05/03: Pain worsening in lumbar spine. Notes his redness swelling and pain has pro gressed into his posterior left thigh. 04/07 focal spinal pain L5-S1 on palpation. 05/04: Patient seen and examined. Discussed with RN. Chart reviewed. Patient in NAD. LLE examined: severe cellulitis with open wounds with + erythema and + swelling. The border of erythema of the LLE was outlined to assess for progression. Charcot joint identified on left foot. WBC is trending down (14.3). Patient endorsed good appetite with 100% of food consumed. Awaiting X-ray impression of lumbar spine. Vitals/I&O Vitals/I&O: Vital Signs Date Time Temp Pulse Resp B/P (MAP) Pulse Ox O2 Delivery O2 Flow Rate FiO2 05/04/21 11:12 98.5 90 20 137/71 (93) 93 Nasal Cannula 2.0 98.5 I & O 05/03/21 05/03/21 05/04/21 15:00 23:00 07:00 Intake Total 900 ml 400 ml Output Total 500 ml 1405 ml 1125 ml Balance -500 ml -505 ml -725 ml Physical Exam Physical Exam: GENERAL: Alert gentleman, not in distress. VITAL SIGNS: stable. HEENT: NAD. NECK: Supple, no JVP, no lymphadenopathy. LUNGS: Clear. HEART: S1, S2 regular. ABDOMEN: Benign. EXTREMITIES: Left lower extremity has chronic venous insufficiency ulcer on the lower part of the leg, it is very large. The patient has now extensive erythema of the leg and going into the medial thigh. Rest of the skin is unremarkable. NEUROLOGIC: The patient is alert, awake, and appropriate. No focal neurologic deficit. General: Alert, Oriented X3, Cooperative, No acute distress Abdomen: Soft (very obese, ) Extremities: No cyanosis, Other (1+ LE edema, some lymphedema from size) Skin: Other (redness, and rash and breakdown, large medial lower leg with full thickness skin peeled off over about 12 cm, with drainage, ) Labs Labs: Laboratory Tests Test 05/04/21 04:10 White Blood Count 14.3 x10^3/uL (4.0-11.0) Red Blood Count 4.14 x10^6/uL (4.30-5.70) Hemoglobin 11.8 g/dL (13.0-17.5) Hematocrit 35.7 % (39.0-53.0) Mean Corpuscular Volume 86 fL (79-100) Mean Corpuscular Hemoglobin 29 pg (25-35) Mean Corpuscular Hemoglobin Concent 33 g/dL (31-37) Red Cell Distribution Width 15.4 % (11.5-14.5) Platelet Count 200 x10^3/uL (140-400) Neutrophils (%) (Auto) 81 % (31-73) Lymphocytes (%) (Auto) 9 % (24-48) Monocytes (%) (Auto) 10 % (0-9) Eosinophils (%) (Auto) 0 % (0-3) Basophils (%) (Auto) 0 % (0-3) Neutrophils # (Auto) 11.6 x10^3/uL (1.8-7.7) Lymphocytes # (Auto) 1.2 x10^3/uL (1.0-4.8) Monocytes # (Auto) 1.4 x10^3/uL (0.0-1.1) Eosinophils # (Auto) 0.1 x10^3/uL (0.0-0.7) Basophils # (Auto) 0.0 x10^3/uL (0.0-0.2) Sodium Level 144 mmol/L (136-145) Potassium Level 3.6 mmol/L (3.5-5.1) Chloride Level 109 mmol/L (98-107) Carbon Dioxide Level 22 mmol/L (21-32) Anion Gap 13 (6-14) Blood Urea Nitrogen 18 mg/dL (8-26) Creatinine 1.5 mg/dL (0.7-1.3) Estimated GFR (Cockcroft-Gault) 46.7 BUN/Creatinine Ratio 12 (6-20) Glucose Level 96 mg/dL (70-99) Calcium Level 8.4 mg/dL (8.5-10.1) Total Bilirubin 0.4 mg/dL (0.2-1.0) Aspartate Amino Transf (AST/SGOT) 65 U/L (15-37) Alanine Aminotransferase (ALT/SGPT) 43 U/L (16-63) Alkaline Phosphatase 58 U/L (46-116) Total Protein 6.4 g/dL (6.4-8.2) Albumin 2.0 g/dL (3.4-5.0) Albumin/Globulin Ratio 0.5 (1.0-1.7) Review of Systems Review of Systems: Patient denies nausea and vomiting. Assessment and Plan Assessmemt and Plan Problems Medical Problems: (1) Fall from standing Status: Acute (2) Fever Status: Acute (3) Left leg cellulitis Status: Acute (4) Leg wound, left Status: Acute (5) Sepsis Status: Acute A: Left leg wound - acute on chronic Left lower extremity severe cellulitis Sepsis Back pain Morbid obese SHILOH Venous insufficiency Peripheral artery disease Plan: 1. Wound care -Assess for progression of erythematous border of LLE cellulitis (marked on 05/04) -Patient has seen wound care at for about 5 years 2. Continue Antibiotics 3. Appreciate Infectious disease subspecialty input 4. Await Lumbar Xray Impression 5. trend labs 6. FEN - Regular diet 7. PPX - heparin 8. FULL CODE 9. Discharge disposition pending Comment Review of Relevant I have reviewed the following items aniket (where applicable) has been applied. Medications: Current Medications Medications (Trade) Dose Ordered Sig/Cale Route PRN Reason Start Time Stop Time Status Last Admin Dose Admin Lactobacillus Rhamnosus (Culturelle) 1 cap BID PO 05/03/21 21:00 05/04/21 08:11 Linezolid (Zyvox) 600 mg BID PO 05/04/21 09:00 05/04/21 10:54 Justifications for Admission Other Justification URSZULA YOUNG III DO May 04, 2021 13:54
[2021-05-04 15:12] VITALS: BP 147/67
[2021-05-04 19:00] VITALS: BP 142/67
[2021-05-04 23:00] VITALS: BP 126/72
[2021-05-05 02:59] VITALS: BP 141/85
[2021-05-05] MEDS: HYDROcodone/APAP 5/325MG 1 TAB TABLET PO PRN ×2 (03:58→13:02)
[2021-05-05] MEDS: PIPERACILLIN/TAZOBACTAM 4.5 GM in IV NORMAL SALINE 100ML 100 ML IV SCH ×4 (05:20→23:36)
[2021-05-05 05:36] LABS: BASO % 0 % (0-3); EOS # 0.1 x10^3/uL (0.0-0.7); EOS % 1 % (0-3); HEMATOCRIT 34.8 % (39.0-53.0); HEMOGLOBIN 11.5 g/dL (13.0-17.5); LYMPH # 1.3 x10^3/uL (1.0-4.8); LYMPH % 8 % (24-48); MEAN CORPUSCULAR HEMOGLOBIN 28 pg (25-35); MEAN CORPUSCULAR HGB CONC 33 g/dL (31-37); MEAN CORPUSCULAR VOLUME 86 fL (79-100); MONO # 1.5 x10^3/uL (0.0-1.1); MONO % 9 % (0-9); NEUT # 12.8 x10^3/uL (1.8-7.7); NEUT % 82 % (31-73); PLATELET COUNT 231 x10^3/uL (140-400); RED BLOOD COUNT 4.05 x10^6/uL (4.30-5.70); RED CELL DISTRIBUTION WIDTH 15.2 % (11.5-14.5); WHITE BLOOD COUNT 15.6 x10^3/uL (4.0-11.0)
[2021-05-05 07:00] VITALS: BP 127/82
--- NOTE | 2021-05-05 08:24 | PDOC ---
Infectious Disease Note Subjective Subjective Patient is feeling better though continues to have significant thigh pain and redness ROS ROS No nausea vomiting diarrhea Vital Sign Vital Signs Vital Signs Date Time Temp Pulse Resp B/P (MAP) Pulse Ox O2 Delivery O2 Flow Rate FiO2 05/05/21 03:58 Nasal Cannula 05/05/21 02:59 98.7 85 18 141/85 (103) 93 2.0 98.7 Physical Exam PHYSICAL EXAM GENERAL: Alert gentleman, not in distress. VITAL SIGNS: stable. HEENT: NAD. NECK: Supple, no JVP, no lymphadenopathy. LUNGS: Clear. HEART: S1, S2 regular. ABDOMEN: Benign. EXTREMITIES: Left lower extremity has chronic venous insufficiency ulcer on the lower part of the leg, it is very large. The patient has now extensive erythema of the leg and going into the medial thigh. Rest of the skin is unremarkable. NEUROLOGIC: The patient is alert, awake, and appropriate. No focal neurologic deficit. Labs Lab Laboratory Tests Test 05/05/21 04:20 White Blood Count 15.6 x10^3/uL (4.0-11.0) Red Blood Count 4.05 x10^6/uL (4.30-5.70) Hemoglobin 11.5 g/dL (13.0-17.5) Hematocrit 34.8 % (39.0-53.0) Mean Corpuscular Volume 86 fL (79-100) Mean Corpuscular Hemoglobin 28 pg (25-35) Mean Corpuscular Hemoglobin Concent 33 g/dL (31-37) Red Cell Distribution Width 15.2 % (11.5-14.5) Platelet Count 231 x10^3/uL (140-400) Neutrophils (%) (Auto) 82 % (31-73) Lymphocytes (%) (Auto) 8 % (24-48) Monocytes (%) (Auto) 9 % (0-9) Eosinophils (%) (Auto) 1 % (0-3) Basophils (%) (Auto) 0 % (0-3) Neutrophils # (Auto) 12.8 x10^3/uL (1.8-7.7) Lymphocytes # (Auto) 1.3 x10^3/uL (1.0-4.8) Monocytes # (Auto) 1.5 x10^3/uL (0.0-1.1) Eosinophils # (Auto) 0.1 x10^3/uL (0.0-0.7) Basophils # (Auto) 0.0 x10^3/uL (0.0-0.2) Micro Microbiology 05/02/21 Blood Culture - Preliminary, Resulted NO GROWTH AFTER 1 DAY Objective Assessment IMPRESSION: 1. Left lower extremity cellulitis, likely introduction of bacteria post-biopsy. 2. Venous insufficiency, chronic ulcer. 3. Peripheral arterial disease. 4. Fever. 5. Leukocytosis. 6. Obesity. Plan Plan of Care Zyvox. Continue Zosyn. PT OT MIKE NUNN MD May 05, 2021 08:24
--- NOTE | 2021-05-05 08:32 | RAD ---
EXAM: XR LUMBAR SPINE 1 VIEW 05/03/2021 1:55 PM CLINICAL INDICATION: Fall, severe L5-S1 focal spine COMPARISON: None TECHNIQUE: Single lateral view of the lumbar spine FINDINGS: The exam is limited due to underpenetration, particularly at L5-S1. There appears to be gr josef 1 spondylolisthesis at L5-S1 with moderate to severe disc space narrowing and probable degenerati ve endplate changes. Inferior endplate compression fracture L5 is not entirely excluded. There is no other fracture in the lumbar spine. Mild degenerative disc disease at the remaining levels. IMPRESSION: Limited exam due to underpenetration, particularly at the level of L5-S1. There appears t o be spondylolisthesis with moderate to severe disc space narrowing and degenerative endplate changes at L5-S1, although an inferior endplate compression fracture is not entirely excluded at L5. Conside r CT to further evaluate, which would be more sensitive for fracture. Electronically signed by: Bri Booth MD (05/05/2021 8:30 AM) [id number]
[2021-05-05] MEDS: LINEZOLID 600 MG TABLET PO SCH ×2 (09:16→21:17)
[2021-05-05] MEDS: ALLOPURINOL 300 MG TABLET. PO SCH (09:16)
[2021-05-05] MEDS: ASPIRIN CHEWABLE 81 MG TABLET. PO SCH (09:17)
[2021-05-05] MEDS: LACTOBACILLUS RHAMNOSUS GG 1 CAPSULE. PO SCH ×2 (09:17→21:17)
--- NOTE | 2021-05-05 10:06 | NUR ---
SW following. Discussed with RN. Pt from home, 2L has a CPAP at home but doesn't always use it), cardiac diet. PT/OT ordered. ID and wound care following. SW will continue to follow.
[2021-05-05 11:23] VITALS: BP 181/84
--- NOTE | 2021-05-05 13:10 | PDOC ---
[employer] [facility] PROGRESS NOTE Date of Service DOS: DATE: 05/05/21 TIME: 12:58 Chief Complaint Chief Complaint Left leg wound - acute on chronic Left lower extremity severe cellulitis Sepsis Back pain Morbid obese SHILOH Venous insufficiency Peripheral artery disease History of Present Illness History of Present Illness Mr. Ba, is a 66 year old male w/ PMHx morbid obesity, kidney stones, gout, and chronic LLE wound presented to ED c/o a fall and worsening of chronic left lower leg wound with now redness and drainage and cellulitis. Left leg was weak and he fell, and leg is more red and painful than normal. He notes he had a biopsy on 04/30/2021 and was instructed he may need steroids based on the results, follows up with [facility]. Patient denies any pain. Denies hitting his head on the ground. Denies any loss of consciousness. He states he has a chronic wound to the left lower extremity for the last 5 years. Noted in ED temp 100 F, heart rate 106 blood pressure 170/79, and labs WBC 24.1, CR 1.4, lactic acid 2.2, procalcitonin 3.9, CRP 276.4. Initiated on Zosyn. Vancomycin with arterial Doppler of lower left extremity Monophasic waveforms throughout the left lower extremity arterial structures is consistent with chronic atherosclerotic disease and small vessel disease and no discrete occlusions. 05/03: Pain worsening in lumbar spine. Notes his redness swelling and pain has pro gressed into his posterior left thigh. 04/07 focal spinal pain L5-S1 on palpation. 05/04: Patient seen and examined. Discussed with RN. Chart reviewed. Patient in NAD. LLE examined: severe cellulitis with open wounds with + erythema and + swelling. The border of erythema of the LLE was outlined to assess for progression. Charcot joint identified on left foot. WBC is trending down (14.3). Patient endorsed good appetite with 100% of food consumed. Awaiting X-ray impression of lumbar spine. 05/05: Patient seen and examined. Discussed with RN. Chart reviewed. Patient in mild distress on examination. Patient exhibits KELLER. On 2L O2 per nasal cannula. LLE erythema has not progressed outside of the border drawn yesterday. Vancomycin was discontinued and Linezolid was initiated per ID input. Lumbar spine X-ray indicated L5/S1 spondylolisthesis. Plan to consult Dr. Almaguer due to abnormal imaging findings. Vitals/I&O Vitals/I&O: Vital Signs Date Time Temp Pulse Resp B/P (MAP) Pulse Ox O2 Delivery O2 Flow Rate FiO2 05/05/21 11:23 98.1 84 16 181/84 (116) 97 Nasal Cannula 2.0 98.1 I & O 05/04/21 05/04/21 05/05/21 15:00 23:00 07:00 Intake Total 500 ml 50 ml Output Total 930 ml 200 ml 700 ml Balance -430 ml -200 ml -650 ml Physical Exam Physical Exam: GENERAL: Alert gentleman, not in distress. VITAL SIGNS: stable. HEENT: NAD. NECK: Supple, no JVP, no lymphadenopathy. LUNGS: Clear. HEART: S1, S2 regular. ABDOMEN: Benign. EXTREMITIES: Left lower extremity has chronic venous insufficiency ulcer on the lower part of the leg, it is very large. The patient has now extensive erythema of the leg and going into the medial thigh. Rest of the skin is unremarkable. NEUROLOGIC: The patient is alert, awake, and appropriate. No focal neurologic deficit. General: Alert, Oriented X3, Cooperative, mild distress (Patient had dyspnea and increased respiration rate during examination ) Abdomen: Soft (very obese, ) Extremities: No cyanosis, Other (1+ LE edema, some lymphedema from size) Skin: Other (redness, and rash and breakdown, large medial lower leg with full thickness skin peeled off over about 12 cm, with drainage, ) Labs Labs: Laboratory Tests Test 05/05/21 04:20 White Blood Count 15.6 x10^3/uL (4.0-11.0) Red Blood Count 4.05 x10^6/uL (4.30-5.70) Hemoglobin 11.5 g/dL (13.0-17.5) Hematocrit 34.8 % (39.0-53.0) Mean Corpuscular Volume 86 fL (79-100) Mean Corpuscular Hemoglobin 28 pg (25-35) Mean Corpuscular Hemoglobin Concent 33 g/dL (31-37) Red Cell Distribution Width 15.2 % (11.5-14.5) Platelet Count 231 x10^3/uL (140-400) Neutrophils (%) (Auto) 82 % (31-73) Lymphocytes (%) (Auto) 8 % (24-48) Monocytes (%) (Auto) 9 % (0-9) Eosinophils (%) (Auto) 1 % (0-3) Basophils (%) (Auto) 0 % (0-3) Neutrophils # (Auto) 12.8 x10^3/uL (1.8-7.7) Lymphocytes # (Auto) 1.3 x10^3/uL (1.0-4.8) Monocytes # (Auto) 1.5 x10^3/uL (0.0-1.1) Eosinophils # (Auto) 0.1 x10^3/uL (0.0-0.7) Basophils # (Auto) 0.0 x10^3/uL (0.0-0.2) Review of Systems Review of Systems: Patient denies nausea and vomiting. Assessment and Plan Assessmemt and Plan Problems Medical Problems: (1) Fall from standing Status: Acute (2) Fever Status: Acute (3) Left leg cellulitis Status: Acute (4) Leg wound, left Status: Acute (5) Sepsis Status: Acute A: Left leg wound - acute on chronic Left lower extremity severe cellulitis Sepsis Back pain Morbid obese SHILOH Venous insufficiency Peripheral artery disease Plan: 1. Continue wound care as directed -Patient has seen wound care at for about 5 years 2. Continue Antibiotics (Zosyn and Zyvox) -Vancomycin was discontinued per ID input 3. Appreciate Infectious disease subspecialty input 4. Consult Neurosurgery per abnormal lumbar spine X-ray findings 5. Trend labs 6. FEN - Cardiac diet 7. PPX - heparin 8. PT/OT 9. FULL CODE 10. Discharge disposition pending Comment Review of Relevant I have reviewed the following items aniket (where applicable) has been applied. Justifications for Admission Other Justification URSZULA YOUNG III DO May 05, 2021 13:10
[2021-05-05 14:27] VITALS: BP 178/63
[2021-05-05 19:30] VITALS: BP 134/77
[2021-05-05 23:43] VITALS: BP 132/76
[2021-05-06 03:11] VITALS: BP 136/78
[2021-05-06] MEDS: PIPERACILLIN/TAZOBACTAM 4.5 GM in IV NORMAL SALINE 100ML 100 ML IV SCH ×2 (05:54→12:30)
[2021-05-06 07:00] VITALS: BP 113/77
--- NOTE | 2021-05-06 07:56 | PDOC ---
Infectious Disease Note Subjective Subjective Patient is feeling better though continues to have thigh pain and redness Patient says he is better enough to want to go home ROS ROS No nausea vomiting diarrhea chest pain shortness of breath abdominal pain fever chills Vital Sign Vital Signs Vital Signs Date Time Temp Pulse Resp B/P (MAP) Pulse Ox O2 Delivery O2 Flow Rate FiO2 05/06/21 03:11 98.5 80 16 136/78 (97) 98 Room Air 98.5 05/05/21 20:00 2.0 Physical Exam PHYSICAL EXAM GENERAL: Alert gentleman, not in distress. VITAL SIGNS: stable. HEENT: NAD. NECK: Supple, no JVP, no lymphadenopathy. LUNGS: Clear. HEART: S1, S2 regular. ABDOMEN: Benign. EXTREMITIES: Left lower extremity has chronic venous insufficiency ulcer on the lower part of the leg, it is very large. The patient has now extensive erythema of the leg and going into the medial thigh. Rest of the skin is unremarkable. NEUROLOGIC: The patient is alert, awake, and appropriate. No focal neurologic deficit. Labs Micro Microbiology 05/02/21 Blood Culture - Preliminary, Resulted NO GROWTH AFTER 1 DAY Objective Assessment IMPRESSION: 1. Left lower extremity cellulitis, likely introduction of bacteria post-biopsy. 2. Venous insufficiency, chronic ulcer. 3. Peripheral arterial disease. 4. Fever. 5. Leukocytosis. 6. Obesity. Plan Plan of Care Zyvox. Continue Zosyn. PT OT Discharge planed, would discharge on p.o. Zyvox and ciprofloxacin MIKE NUNN MD May 06, 2021 07:56
[2021-05-06] MEDS ORDERED: LINE600T12 PO (08:43)
[2021-05-06] MEDS ORDERED: HYDR-2761 PO (08:43)
--- NOTE | 2021-05-06 08:55 | PDOC ---
[facility] [facility] PROGRESS NOTE Date of Service DOS: DATE: 05/06/21 TIME: 08:48 Chief Complaint Chief Complaint Left leg wound - acute on chronic Left lower extremity severe cellulitis Sepsis Back pain Morbid obese SHILOH Venous insufficiency Peripheral artery disease History of Present Illness History of Present Illness Mr. Ba, is a 66 year old male w/ PMHx morbid obesity, kidney stones, gout, and chronic LLE wound presented to ED c/o a fall and worsening of chronic left lower leg wound with now redness and drainage and cellulitis. Left leg was weak and he fell, and leg is more red and painful than normal. He notes he had a biopsy on 04/30/2021 and was instructed he may need steroids based on the results, follows up with [facility]. Patient denies any pain. Denies hitting his head on the ground. Denies any loss of consciousness. He states he has a chronic wound to the left lower extremity for the last 5 years. Noted in ED temp 100 F, heart rate 106 blood pressure 170/79, and labs WBC 24.1, CR 1.4, lactic acid 2.2, procalcitonin 3.9, CRP 276.4. Initiated on Zosyn. Vancomycin with arterial Doppler of lower left extremity Monophasic waveforms throughout the left lower extremity arterial structures is consistent with chronic atherosclerotic disease and small vessel disease and no discrete occlusions. 05/03: Pain worsening in lumbar spine. Notes his redness swelling and pain has pro gressed into his posterior left thigh. 04/07 focal spinal pain L5-S1 on palpation. 05/04: Patient seen and examined. Discussed with RN. Chart reviewed. Patient in NAD. LLE examined: severe cellulitis with open wounds with + erythema and + swelling. The border of erythema of the LLE was outlined to assess for progression. Charcot joint identified on left foot. WBC is trending down (14.3). Patient endorsed good appetite with 100% of food consumed. Awaiting X-ray impression of lumbar spine. 05/05: Patient seen and examined. Discussed with RN. Chart reviewed. Patient in mild distress on examination. Patient exhibits KELLER. On 2L O2 per nasal cannula. LLE erythema has not progressed outside of the border drawn yesterday. Vancomycin was discontinued and Linezolid was initiated per ID input. Lumbar spine X-ray indicated L5/S1 spondylolisthesis. Plan to consult Dr. Almaguer due to abnormal imaging findings. 05/06: Patient seen and examined. Discussed with RN. Chart reviewed. Patient was sitting up in NAD. Patient endorsed feeling well and desiring to go home. Discussed with Dr. Buck. Patient can be discharged per agreement with neurosurgery consult. Vitals/I&O Vitals/I&O: Vital Signs Date Time Temp Pulse Resp B/P (MAP) Pulse Ox O2 Delivery O2 Flow Rate FiO2 05/06/21 03:11 98.5 80 16 136/78 (97) 98 Room Air 98.5 05/05/21 20:00 2.0 I & O 05/05/21 05/05/21 05/06/21 15:00 23:00 07:00 Intake Total 240 ml 300 ml 250 ml Output Total 800 ml 200 ml 400 ml Balance -560 ml 100 ml -150 ml Physical Exam Physical Exam: GENERAL: Alert gentleman, not in distress. VITAL SIGNS: stable. HEENT: NAD. NECK: Supple, no JVP, no lymphadenopathy. LUNGS: Clear. HEART: S1, S2 regular. ABDOMEN: Benign. EXTREMITIES: Left lower extremity has chronic venous insufficiency ulcer on the lower part of the leg, it is very large. The patient has now extensive erythema of the leg and going into the medial thigh. Rest of the skin is unremarkable. NEUROLOGIC: The patient is alert, awake, and appropriate. No focal neurologic deficit. General: Alert, Oriented X3, Cooperative, mild distress (Patient had dyspnea and increased respiration rate during examination ) Abdomen: Soft (very obese, ) Extremities: No cyanosis, Other (1+ LE edema, some lymphedema from size) Skin: Other (redness, and rash and breakdown, large medial lower leg with full thickness skin peeled off over about 12 cm, with drainage, ) Review of Systems Review of Systems: Denies changes in appetite. Denies cough. Assessment and Plan Assessmemt and Plan Problems Medical Problems: (1) Fall from standing Status: Acute (2) Fever Status: Acute (3) Left leg cellulitis Status: Acute (4) Leg wound, left Status: Acute (5) Sepsis Status: Acute A: Left leg wound - acute on chronic Left lower extremity severe cellulitis Sepsis Back pain Morbid obese SHILOH Venous insufficiency Peripheral artery disease Plan: 1. Await neurosurgery input concerning abnormal lumbar spine x-ray 2. Wound care as directed -Patient has seen wound care at for about 5 years 3. Continue Antibiotics (Zosyn and Zyvox) 4. Appreciate Infectious disease subspecialty input 5. Trend labs 6. FEN - Cardiac diet 7. PPX - heparin 8. PT/OT 9. FULL CODE 10. Hoping to discharge patient when approved by neurosurgery Comment Review of Relevant I have reviewed the following items aniket (where applicable) has been applied. Justifications for Admission Other Justification URSZULA YOUNG III DO May 06, 2021 08:55
[2021-05-06] MEDS: ASPIRIN CHEWABLE 81 MG TABLET. PO SCH (09:16)
[2021-05-06] MEDS: ALLOPURINOL 300 MG TABLET. PO SCH (09:17)
[2021-05-06] MEDS: LINEZOLID 600 MG TABLET PO SCH (09:17)
[2021-05-06] MEDS: LACTOBACILLUS RHAMNOSUS GG 1 CAPSULE. PO SCH (09:17)
[2021-05-06 11:00] VITALS: BP 148/82
--- NOTE | 2021-05-06 13:08 | NUR ---
SW following. Discussed with RN, pt from home alone. SW met with pt, pt declining home health at this time. Wants to take care of his wounds himself. RN notified. Pt is a high risk readmission for declining recommendations at discharge. No further SW needs.
[2021-05-06 15:00] VITALS: BP 154/81
--- NOTE | 2021-05-06 17:11 | NUR ---
Patient was supposed to be discharge home with home health but patient refused home health at this time. Patient discharge home via wheelchair, accompanied by this RN. Patient is stable, IV removed and discharge paperwork given to patient. Patient verbalized understanding of followup and discharge instruction. This nurse talked to Dr. Rosina Abreu about patient going home and she told this nurse to have patient followup with outpatient. Patient said he will followup WC at .
--- NOTE | 2021-05-06 17:22 | DS ---
DATE OF DISCHARGE: 05/06/2021 ADMISSION DIAGNOSIS: Severe cellulitis of the left leg. DISCHARGE DIAGNOSIS: Acute on chronic, resolving cellulitis. CONSULTS: Malik Buck, Infectious Disease. PROCEDURES: None. HOSPITAL COURSE: The patient is a pleasant middle-aged male who has severe cellulitis of his left lower extremity. He states he has been going [facility] and they debrided, but it just seems to get bigger. We admitted the patient. We gave him IV antibiotics. We consulted Infectious Disease. Today, I spoke with the infectious disease physician. He is okay with the patient going home. I also saw and examined the patient. He is at his baseline. We plan to discharge. DISPOSITION: Home. ACTIVITY: As tolerated. DIET: Low sodium. DISCHARGE MEDICATIONS: Hydrocodone 5/325 one q.6 p.r.n., Zyvox 600 b.i.d., allopurinol 300 a day, amlodipine 5 a day, Lotrel 5/10 one a day, aspirin 81 a day, meloxicam 15 a day, vitamins, potassium, Klor-Con [address]: Carol TID: [id number]
== END 2021-05-06 17:18 | disposition home or self-care (01) | DRG 872 ==
LOC: ER 11:01 → ED HOLD 13:58 → 4 NORTH 17:10
PROVIDERS: ADMIT Internal Medicine; ATTEND Internal Medicine
PROC: 5A09357 Assistance with Respiratory Ventilation, Less than 24 Consecutive Hours, Continuous Positive Airway Pressure (ICD-10-PCS; principal; 2021-05-03)
DX: A41.9 Sepsis, unspecified organism (principal); N17.9 Acute kidney failure, unspecified; L03.116 Cellulitis of left lower limb; A52.16 Charcot's arthropathy (tabetic); Z68.43 Body mass index [BMI] 50.0-59.9, adult; E66.01 Morbid (severe) obesity due to excess calories; I10 Essential (primary) hypertension; I87.2 Venous insufficiency (chronic) (peripheral); M43.17 Spondylolisthesis, lumbosacral region; W18.30XA Fall on same level, unspecified, initial encounter; G47.33 Obstructive sleep apnea (adult) (pediatric); S81.802A Unspecified open wound, left lower leg, initial encounter; I73.9 Peripheral vascular disease, unspecified; Z88.5 Allergy status to narcotic agent; Y93.89 Activity, other specified; Y99.8 Other external cause status; Z87.442 Personal history of urinary calculi; Y92.009 Unspecified place in unspecified non-institutional (private) residence as the place of occurrence of the external cause
CPT/HCPCS: 36415; 72020; 80053; 83605; 84145; 85007; 85025; 85651; 86140; 87040; 93923; 94660; J2543; J3010; J3370; J7030; J7040; 97116-GP; 97530-GO; 99285-25; G0378